=== PATIENT | female | born 1940 | race Caucasian/White ===

== ENCOUNTER 2024-07-19 14:17 | Outpatient (AMB) | payer MEDICARE, OTHER, SELFPAY ==
--- NOTE | 2024-07-19 14:19 | MHC.OFFVIS ---
Vital Signs 07/19/24 14:20 Height 5 ft 6 in Weight 137 lb 9.095 oz BMI 22.2 BP 130/62 Blood Pressure Location Lt brachial Position Sitting Pulse 69 Pulse Source Pulse Oximeter Intake Visit Reasons: hyperparathyroidism Intake Note: Patient present today for Hyperthyroidism. Forensic Manager Required: No Accompanied by: Grand Child Allergies Penicillins Allergy (Mild, Verified 07/19/24 14:24) rash Medication List - Last Reconciled 07/19/24 by Yisel Corcoran MD amitriptyline 50 mg PO BEDTIME fluvastatin 20 mg PO DAILY hydrochlorothiazide 25 mg PO DAILY temazepam 15 mg PO BEDTIME PRN HPI Comments Details: 83-year-old female here today for subclinical hyperthyroidism. Here today with mallory. Labs done in May 2024 showed TSH was mildly low at 0.212, with normal free T4 of 1.4. Patient currently denies heat or cold intolerance, diarrhea or constipation, hair loss, palpitation, weight changes, mood changes, low energy, changes in appearance of eyes or vision changes, increased diaphoresis or dry skin. ? Does report some increased anxiety. Some intermittent chronic tremors. Patient denies any difficulty swallowing, pain on swallowing or voice changes or difficulty breathing. Patient denies any history of childhood neck radiation. Denies having ever used lithium, amiodarone or biotin supplements. Patient denies any family history of thyroid cancer. Granddaughter has hypothyroidism. no CT scan recently no preceding viral illness no CAD no fractures but no bone recent BMD , patient denies osteoporosis Physical exam General: sitting comfortably in no acute distress HEENT: normocephalic/atraumatic, moist oral mucosa Neck: supple, palpable 1 cm right-sided thyroid nodule, palpable 1 cm left-sided level 3 lymph node Cardiac: normal heart sounds Pulm: normal breath sounds B/L, no added breath sounds Abd: not distended, no tenderness Extremities: no edema, no signs of myxedema, mild tremors Neuro: AAO x3, Speech: normal, no facial droop, moving all 4 extremities [facility] Medical History (Updated 07/19/24 @ 14:47 by Yisel Corcoran MD) Thyroid nodule Subclinical hyperthyroidism Surgical History (Updated 07/19/24 @ 14:26 by YOLANDA Karimi) History of bladder surgery Social History Alcohol intake: current Alcohol intake frequency: does not drink Patient Tobacco Use Status: Former Tobacco user Assessment & Plan Assessment & Plan (1) Subclinical hyperthyroidism: Code(s): E05.90 - Thyrotoxicosis, unspecified without thyrotoxic crisis or storm Category: Medical Plan: 83-year-old female here today for initial evaluation of subclinical hyperthyroidism. Labs done in May 2024 showed TSH was mildly low at 0.212, with normal free T4 of 1.4. She has never had prior history of thyroid dysfunction or thyroid hormone medication. She is not symptomatic. No history of heart disease, no known history of osteoporosis or any history of fragility fracture. However she is greater than 65 years, so we could possibly consider treatment. We will repeat her labs and also check her antibody levels to workup the etiology. She denies any preceding illness, no sore throat to suggest thyroiditis. No recent contrast exposure. No biotin use. Plan: -check TSH, free T4, total T3, TSI, TSH receptor and TPO antibodies (2) Thyroid nodule: Code(s): E04.1 - Nontoxic single thyroid nodule Category: Medical Plan: Also noted to have a palpable 1 cm right-sided thyroid nodule on my exam. We will get an ultrasound of the thyroid. Plan: -ordered ultrasound of the thyroid -follow up in 5 weeks to discuss results Plan I spent 45 minutes in reviewing the record, seeing the patient and documenting in the medical record. Orders: Orders Thyroid Stimulating Immunoglob Today E05.90 - Thyrotoxicosis, unspecified without thyrotoxic crisis or storm Thyrotropin Receptor Antibody Today E05.90 - Thyrotoxicosis, unspecified without thyrotoxic crisis or storm Thyroid Peroxidase Antibodies Today E05.90 - Thyrotoxicosis, unspecified without thyrotoxic crisis or storm Thyroid Stimulating Hormone Today E05.90 - Thyrotoxicosis, unspecified without thyrotoxic crisis or storm Free T4 (Free Thyroxine) Today E05.90 - Thyrotoxicosis, unspecified without thyrotoxic crisis or storm Triiodothyronine T3 Total Today E05.90 - Thyrotoxicosis, unspecified without thyrotoxic crisis or storm US thyroid Today E04.1 - Nontoxic single thyroid nodule, E05.90 - Thyrotoxicosis, unspecified without thyrotoxic crisis or storm Coding Level of Care Code New Pt Level 4 (90097) Diagnoses Subclinical hyperthyroidism E05.90 Thyroid nodule E04.1 Time Spent (min) 45
[2024-07-19 14:20] VITALS: BP 130/62; PULSE 69; BMI 22.2
--- OUTSIDE RECORDS SUMMARY | 2024-07-19 16:26 | XMS_ITS ---
Author Organization [facility], [facility] Address [address], [place] [id number] Care Team Providers Care Bottom Worker Name Role Phone DAXA MONCADA Primary Care Provider Che Noel [phone] REASON FOR VISIT annual/labs Encounters Encounter Location Date Provider Diagnosis [facility], [address] [id number] 06/13/2024 Che Noel PLAN OF TREATMENT No Information Progress Notes * MARGOTH FLYNNOB:1940 (83 yo F)Acc No.[id number]:06/13/2024 Progress Note Patient:??MAXWELL FLYNN Provider:??Che Noel DNP :1940?Age:83 Y?Sex:Fe male Date:06/13/2024 Phone: Address:[address], [id number] Pcp:DAXA MONCADA Subjective: * Chief Complaints: * ?1. Annual/labs. * Medical History:?? Objective: Assessment: Plan: * Treatment: Care Plan: * Problems:?? * Billing Information: * Visit Code:?? * Procedure Codes:?? * Sign off status: Pending * Provider:??Che Noel DNP Date:??
--- OUTSIDE RECORDS SUMMARY | 2024-07-19 16:26 | XMS_ITS | Patient Health Record ---
Author Organization [facility] Address [address] [place] [id number] Care Team Providers Care Railroad Detective Name Role Phone DAXA MONCADA Primary Care Provider [phone] Kenzie Noelie Unavailable [phone] ALLERGIES Allergen (clinical drug ingredient) Drug/Non Drug Allergy documented on EMR Reaction Allergy Type Onset Date Status amoxicillin Amoxicillin Unknown Drug Allergy Act john Penicillin rash , Severity Observation:Mode rate to severe , Drug Allergy Active REASON FOR REFERRAL No Information MEDICATIONS Medication SIG (Take, Route, Frequency, Duration) Notes Start Date End Date Status Albuterol Sulfate HFA 108 (90 Base) MCG/ACT INHALE 1 PUFF INTO THE LUNGS EVERY 4 HOURS NEEDED FOR 30 DAYS Active hydroCHLOROthiazide 25 MG 1 tablet in th e morning Oral Once a day for 90 days Active Aspirin 81 MG Oral aspirin 81 mg capsule *Pick strength-form from [employer] for eRX* 12/03/2021 Not-Taking Multivitamin Adult A ctive Trelegy Ellipta 100-62.5-25 MCG/ACT INHALE 1 PUFF INTO THE LUNGS EVERY DAY Active Temazepam 15 MG TAKE 1 CAPSULE BY MOUTH EVERYDAY AT BEDTIME 02/14/2024 Active Amitriptyline HCl 50 MG 1 tablet at bedtime Orally Once a day for 90 days Active Fluvastatin Sodium 20 MG 1 capsule in th e evening Orally Once a day for 90 days Active SOCIAL HISTORY Tobacco Use: Social History Observation Description Date Details (start date - stop date) Former Smoker NA - NA Sex Assigned At : Social History Observation Description Sex Assigned At Unknown Household Question Answer Notes Marital status: single Tobacco Use/Smoking Question Answer Notes Tobacco use: former smoker Sexual History Question Answer Notes Had sex in the past 12 months (vaginal, oral, or anal)? No Section Notes: Lives in [place], [place] with daughter Lives in [place], [place] with daughter Lives in [place] with daughter [place] in [place] with daughter PROBLEMS Problem Type ICD Code Onset Dates Problem Status W/U Status Risk SNOMED Code Notes Problem Mixed hyperlipidemia (E78.2) Active confirmed 942970279 Problem Primary insomnia (F51.01) Active confirmed 2775862 Problem Essential (primary) hypertension (I10) Active confirmed 72913497 Problem Slow transit constipation (K59.01) Active confirmed 64464216 Problem Chronic obstructive pulmonary disease, unspecified COPD type (J44.9) Active confirmed 76550196 Problem Hyperthyroidism (E05.90) Active confirmed 37831498 Problem Elevated hemoglobin (D58.2) Active confirmed 234800717 Problem 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 Started at 81 and increased to 84. Height-cm 170.18 cm 03/28/2024 Fingers are anne y cold. Started at 81 and increased to 84. Oximetry 87 % 03/28/2024 Fingers are anne y cold. Started at 81 and increased to 84. Blood pressure diastolic 64 mm Hg 03/28/2024 Fin gers are very cold. Started at 81 and increased to 84. Weight-kg 60.96 kg 03/28/2024 Fingers are anne y cold. Started at 81 and increased to 84. Height 67 in 03/28/2024 Fingers are anne y cold. Started at 81 and increased to 84. Blood pressure systolic 116 mm Hg 03/28/2024 Fing ers are very cold. Started at 81 and increased to 84. Weight 134.4 lbs 03/28/2024 Fingers are anne y cold. Started at 81 and increased to 84. BMI 21.05 kg/m2 03/28/2024 Fingers are anne y cold. Started at 81 and increased to 84. Encounters Encounter Location Date Provider Diagnosis [facility], [address] [place] [id number] [address] [place] [id number] 06/13/2024 Che [facility], [address] [place] [id number] 03/28/2024 Che Noel Essential (primary) hypertension I10 ; Mixed hyperlipidemia E78.2 ; Hyperthyroidism E05.90 ; Elevated hemoglobin D58.2 ; Chronic obstructive pulmonary disease, unspecified COPD type J44.9 and Primary insomnia F51.[address] [id number] 07/28/2023 Che Noel [address] [id number] 12/07/2023 Che Noel [address] [id number] 02/14/2024 Che Noel [address] [id number] 04/06/2024 Che Noel ASSESSMENTS Encounter Date Diagnosis Assessment Notes Treatment Notes Treatment Clinical Notes Section Notes 03/28/2024 Mixed hyperlipidemia (ICD-10 - E78.2) Continue current statin Low fat, low cholesterol diet Exercise Check lipids, LFTs 03/28/2024 Essential (primary) hypertension (ICD-10 - I10) Continue medication as directed Low-salt diet Weight management Regular exercise Yearly microalbumin 03/28/2024 Hyperthyroidism (ICD-10 - E05.90) Will repeat labs 03/28/2024 Elevated hemoglobin (ICD-10 - D58.2) Will repeat labs 03/28/2024 Chronic obstructive pulmonary disease, unspecified COPD type (ICD-10 - J44.9) Continue with inhalers Discussed proper usage/technique Treat any infections proactively Needed oxygen therapy to dany o2sat 88-90%- will send script to [facility]. 03/28/2024 Primary insomnia (ICD-10 - F51.01) Stable/managed on current med regimen Discussed importance of sleep hygiene To engage in both pharmacologic and nonpharmacologic means 03/28/2024 Other Labs printed- w ill most likely go to [facility] to get her labs done PLAN OF TREATMENT Future Test Test Name Order Date LIPID PANEL, STANDARD (4770) 03/28/2024 THYROID PANEL WITH TSH (8206) 03/28/2024 IRON, TIBC AND FERRITIN PANEL (9736) 10/2024 METHYLMALONIC ACID AND HOMOCYSTEINE (305 17) 03/28/2024 COMPREHENSIVE METABOLIC PANEL (04682) CBC (INCLUDES DIFF/PLT) (6399) RETICULOCYTE COUNT (793) 03/28/2024 HS CRP (85640) 03/28/2024 APOLIPOPROTEIN A1 (5223) 03/28/2024 APOLIPOPROTEIN B (5224) 03/28/2024 INSULIN (561) 03/28/2024 VITAMIN D,25-OH,TOTAL,IA (45858) 025 Insurance Providers Payer Name Payer Address Payer Phone Subscriber Number Group Number Insured Name Patient Relationship to Insured Coverage Start Date Coverage End Date Medicare [address] [place] [address] [phone] [id number] MAXWELL FLYNN Self - patient is the insured [facility] [address] [place], [place] [id number] MAXWELL FLYNN Self - patient is the insured MEDICAL (GENERAL) HISTORY Medical History History ICD Code transient ischemic attack (TIA) dentures hearing aids cataracts hyperthyroidism hypertension urinary tract infection- straight cath's herself chronic obstructive pulmonary disease emphysema Surgical History Surgery Date(Month/Year) Bladder tied off (as a cath) 2019
--- OUTSIDE RECORDS SUMMARY | 2024-07-19 16:26 | XMS_ITS ---
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 Name Role Phone DAXA MONCADA Primary Care Provider Che Noel Unavailable [phone] ALLERGIES Allergen (clinical drug ingredient) Drug/Non Drug Allergy documented on EMR Reaction Allergy Type Onset Date Status amoxicillin Amoxicillin Unknown Drug Allergy Act john Penicillin rash , Severity Observation:Mode rate to severe , Drug Allergy Active REASON FOR VISIT f/u wellness MEDICATIONS Medication SIG (Take, Route, Frequency, Duration) Notes Start Date End Date Status Albuterol Sulfate HFA 108 (90 Base) MCG/ACT INHALE 1 PUFF INTO THE LUNGS EVERY 4 HOURS NEEDED FOR 30 DAYS Active hydroCHLOROthiazide 25 MG 1 tablet in th e morning Oral Once a day for 90 days Active Aspirin 81 MG Oral aspirin 81 mg capsule *Pick strength-form from [email or web address] for eRX* 12/03/2021 Not-Taking Multivitamin Adult A ctive Fluvastatin Sodium 20 MG 1 capsule in th e evening Orally Once a day for 90 days Active Trelegy Ellipta 100-62.5-25 MCG/ACT INHALE 1 PUFF [...] or anal)? No Section Notes: Lives in [place], [place] with daughter VITAL SIGNS Blood pressure systolic 116 mm Hg 03/28/19 25 Blood pressure diastolic 64 mm Hg 025 Heart Rate 91 /min 03/28/2024 Oximetry 87 % 03/28/2024 Weight 134.4 lbs 03/28/2024 Weight-kg 60.96 kg 03/28/2024 Height 67 in 03/28/2024 Height-cm 170.18 cm 03/28/2024 BMI 21.05 kg/m2 03/28/2024 Fingers are very cold. Start ed at 81 and increased to 84. Encounters Encounter Location Date Provider Diagnosis [address] [phone] 03/28/2024 Che Noel Essential (primary) hypertension I10 ; Mixed hyperlipidemia E78.2 ; Hyperthyroidism E05.90 ; Elevated hemoglobin D58.2 ; Chronic obstructive pulmonary disease, unspecified COPD type J44.9 and Primary insomnia F51.01 ASSESSMENTS Encounter Date Diagnosis Assessment Notes Treatment Notes Treatment Clinical Notes Section Notes 03/28/2024 Essential (primary) hypertension (ICD-10 - I10) Continue medication as directed Low-salt diet Weight management Regular exercise Yearly microalbumin 03/28/2024 Mixed hyperlipidemia (ICD-10 - E78.2) Continue current statin Low fat, low cholesterol diet Exercise Check lipids, LFTs 03/28/2024 Hyperthyroidism (ICD-10 - E05.90) Will repeat [...] get her labs done PLAN OF TREATMENT Medication Medication Name Sig Start Date Stop Date Notes Albuterol Sulfate HFA 108 (9 0 Base) MCG/ACT INHALE 1 PUFF INTO THE LUNGS EVERY 4 HOURS NEEDED FOR 30 DAYS hydroCHLOROthiazide 25 MG 1 tablet in th e morning Oral Once a day for 90 days Multivitamin Adult Fluvastatin Sodium 20 MG 1 capsule in th e evening Orally Once a day for 90 days Trelegy Ellipta 100-62.5-25 MCG/ACT INHA LE 1 PUFF INTO THE LUNGS EVERY DAY Temazepam 15 MG TAKE 1 CAPSULE BY [facility] EVERYDAY AT BEDTIME 02/14/2024 Amitriptyline HCl 50 MG 1 tablet at bedt brennan Orally Once a day for 90 days Treatment Notes Assessment Notes Essential (primary) hypertension Continue medication as directed Low-salt diet Weight management Regular exercise Yearly microalbumin Mixed hyperlipidemia Continue current statin Low fat, low cholesterol diet Exercise Check lipids, LFTs Hyperthyroidism Will repeat labs Elevated hemoglobin Will repeat labs Chronic obstructive pulmonar y disease, unspecified COPD type Continue with inhalers Discussed proper usage/technique Treat any infections proactively Needed oxygen therapy to [facility] o2sat 88-90%- will send script to [facility]. Primary insomnia Stable/managed on current med regimen Discussed importance of sleep hygiene To engage in both pharmacologic and nonpharmacologic means Other Labs printed- will miriam he likely go to [facility] to get her labs done Future Test Test Name Order Date LIPID PANEL, STANDARD (7600) 03/28/2024 THYROID PANEL WITH TSH (7444) 03/28/2024 IRON, TIBC AND FERRITIN PANEL (5616) 10/2024 METHYLMALONIC ACID AND HOMOCYSTEINE (305 17) 03/28/2024 COMPREHENSIVE METABOLIC PANEL (82429) CBC (INCLUDES DIFF/PLT) (6399) RETICULOCYTE COUNT (793) 03/28/2024 HS CRP (84185) 03/28/2024 APOLIPOPROTEIN A1 (5223) 03/28/2024 APOLIPOPROTEIN B (5224) 03/28/2024 INSULIN (561) 03/28/2024 VITAMIN D,25-OH,TOTAL,IA (10866) 025 Next Appt Details Follow Up: May- already crist[facility] oked for CPE, Reason: please write on card and print labs Progress Notes * MARGOTH FLYNNOB:1940 (83 yo F)Acc No.[id number]:03/28/2024 Progress Notes Patient:??JACI FLYNN Provider:??Che Noel DNP :1940?Age:83 Y?Sex:Fe male Date:03/28/2024 Phone: Address:[address], [place], [id number] Pcp:DAXA MONCADA Subjective: * Chief Complaints: * ?F/u wellness * HPI: ?Patient Care Team:?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 Providers/Specialists: Not at this moment. ?Visit info:? Jaci presents in the office today for a wellness check in. Since her last visit she has moved into her own place in [place]. She states that she doesn't mind living alone and enjoys her own space. ?She explains an episode of what sounds like Vertigo a few months ago. She states that she does get dizzy from time to time when she moves positions quickly. ?She denies episodes of palpitations, shortness of breath, unsteady gait, confusion, disorientation ?She states that she does need a new script for home oxygen as she does use it periodically ?Also will need a new handicap placard in September- she is still using her one from [place] ?She states that she stopped taking her ASA because she was bruising, encouraged to take every other day and see if her bruising improves. ?Enjoyed the holidays with family ?She is due for a CPE and repeat labs- concern of driving in bad weather, either too cold or too hot- encouraged the use of TELE visit in the event she cannot go out, but needs to be seen or talk about concerns she has. * ROS:?Reviewed. * Medical History:?? 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 * OB History:?? Histo ry:??Total pregnancies:??4,??Full-term pregnancies:??3,??AB Induced:??1.?? * Surgical History:??Bladder t ied off (as a cath) 2020 * Hospitalization/Major Diagno stic Procedure:?? * Family History:??Father: dec eased 72 yrs, colon cancer.??Mother: 72 yrs, lung cancer.??Brother: 50 yrs, AIDS.??Sister: , skin cancer, congenital heart disease, heart disease.??Brother #2: 56 yrs, lung cancer.??Brother #3: 69 yrs, dementia, lung cancer.?? * Social History:?Tobacco Use:??Tobacco Use/Smoking??Tobacco use:??former smoker.?Sexual History:??Sexual History??Had sex in the past 12 months (vaginal, oral, or anal)???No.?Drugs/Alcohol:??Do you drink alcohol?: No. ?Household:??Household??Marital status:??single.?Miscellaneous:??Occupation: retired. ?Lives in [place], [place] with daughter. * Medications:??TakingMultivit alex Adult Albuterol Sulfate HFA 108 (90 Base) MCG/ACT Aerosol Solution INHALE 1 PUFF INTO THE LUNGS EVERY 4 HOURS NEEDED FOR 30 DAYS Amitriptyline HCl 50 MG Tablet TAKE 1 TABLET BY MOUTH EVERY DAY AT BEDTIME FOR 90 DAYS Fluvastatin Sodium 20 MG Capsule TAKE 1 CAPSULE BY MOUTH IN THE EVENING hydroCHLOROthiazide 25 MG Tablet TAKE 1 TABLET BY MOUTH EVERY MORNING Trelegy Ellipta 100-62.5-25 MCG/ACT Aerosol Powder Breath Activated INHALE 1 PUFF INTO THE LUNGS EVERY DAY Temazepam 15 MG Capsule TAKE 1 CAPSULE BY MOUTH EVERYDAY AT BEDTIME Taking Multivitamin Adult Taking Albuterol Sulfate HFA 108 (90 Base) MCG/ACT Aerosol Solution INHALE 1 PUFF INTO THE LUNGS EVERY 4 HOURS NEEDED FOR 30 DAYS Taking Amitriptyline HCl 50 MG Tablet TAKE 1 TABLET BY MOUTH EVERY DAY AT BEDTIME FOR 90 DAYS Taking Fluvastatin Sodium 20 MG Capsule TAKE 1 CAPSULE BY MOUTH IN THE EVENING Taking hydroCHLOROthiazide 25 MG Tablet TAKE 1 TABLET BY MOUTH EVERY MORNING Taking Trelegy Ellipta 100-62.5-25 MCG/ACT Aerosol Powder Breath Activated INHALE 1 PUFF INTO THE LUNGS EVERY DAY Taking Temazepam 15 MG Capsule TAKE 1 CAPSULE BY MOUTH EVERYDAY AT BEDTIME Not-TakingAspirin 81 MG Capsule Oral , Notes to Pharmacist: aspirin 81 mg capsule *Pick strength-form from [employer] for eRX*Medication List reviewed and reconciled with the patientNot-Taking Aspirin 81 MG Capsule Oral , Notes to Pharmacist: aspirin 81 mg capsule *Pick strength-form from [employer] for eRX*Medication List reviewed and reconciled with the patient * Allergies:??Penicillin: rash , Severity Observation:Moderate to severe , - AllergyAmoxicillin: Side Effects Objective: * Vitals:??BP: 116/64 mm Hg, H R: 91 /min, Oxygen sat %:87%, Wt: 134.4 lbs, Wt-k.96 kg, Ht: 67 in, Ht-cm: 170.18 cm, BMI: 21.05 Index, Body Surface Area: 1.7 Fingers are very cold. Started at 81 and increased to 84. * Examination: ?General Examination: ?General appearance: no acute distress, speaking full sentences, thoughts clear and appropriate. ? Head: normocephalic, atraumatic. ? Eyes: sclera anicteric. ? Oral cavity: with good dentition, tongue is midline. ? Lungs: non-labored breathing, no audible shortness of breath or wheezing. ? Neurologic: alert and oriented, cooperative with exam. ? Psych: with good judgement and insight, speech is clear and coherent, normal affect / mood. Assessment: * Assessment: 1.??Essential (primary) hype rtension - I10 (Primary)??2.??Mixed hyperlipidemia - E78.2??3.??Hyperthyroidism - E05.90??4.??Elevated hemoglobin - D58.2??5.??Chronic obstructive pulmonary disease, unspecified COPD type - J44.9??6.??Primary insomnia - F51.01?? Plan: * Treatment: 2.??Mixed hyperlipidemia?? Refill Fluvastatin Sodium Capsule, 20 MG, 1 capsule in the evening, Orally, Once a day, 90 days, 90 Capsule, Refills 3.?LAB: APOLIPOPROTEIN A1 (5223) (Ordered for 03/28/2024) ?LAB: APOLIPOPROTEIN B (5224) (Ordered for 03/28/2024) ?LAB: CBC (INCLUDES DIFF/PLT) (6399) (Ordered for 03/28/2024) ?LAB: COMPREHENSIVE METABOLIC PANEL (14579) (Ordered for 03/28/2024) ?LAB: HS CRP (36394) (Ordered for 03/28/2024) ?LAB: INSULIN (561) (Ordered for 03/28/2024) ?LAB: IRON, TIBC AND FERRITIN PANEL (5616) (Ordered for 03/28/2024) ?LAB: LIPID PANEL, STANDARD (2100) (Ordered for 03/28/2024) ?LAB: METHYLMALONIC ACID AND HOMOCYSTEINE (94854) (Ordered for 03/28/2024) ?LAB: RETICULOCYTE COUNT (793) (Ordered for 03/28/2024) ?LAB: THYROID PANEL WITH TSH (3744) (Ordered for 03/28/2024) ?LAB: VITAMIN D,25-OH,TOTAL,IA (76642) (Ordered for 03/28/2024) Notes: Continue current statin Low fat, low cholesterol diet Exercise Check lipids, LFTs? 3.??Hyperthyroidism?LAB: APOLIPOPROTEIN A1 (5223) (Ordered for 03/28/2024) ?LAB: APOLIPOPROTEIN B (5224) (Ordered for 03/28/2024) ?LAB: CBC (INCLUDES DIFF/PLT) (6399) (Ordered for 03/28/2024) ?LAB: COMPREHENSIVE METABOLIC PANEL (64960) (Ordered for 03/28/2024) ?LAB: HS CRP (91321) (Ordered for 03/28/2024) ?LAB: INSULIN (561) (Ordered for 03/28/2024) ?LAB: IRON, TIBC AND FERRITIN PANEL (5616) (Ordered for 03/28/2024) ?LAB: LIPID PANEL, STANDARD (9290) (Ordered for 03/28/2024) ?LAB: METHYLMALONIC ACID AND HOMOCYSTEINE (22352) (Ordered for 03/28/2024) ?LAB: RETICULOCYTE COUNT (793) (Ordered for 03/28/2024) ?LAB: THYROID PANEL WITH TSH (2844) (Ordered for 03/28/2024) ?LAB: VITAMIN D,25-OH,TOTAL,IA (85940) (Ordered for 03/28/2024) Notes: Will repeat labs? 4.??Elevated hemoglobin?LAB: APOLIPOPROTEIN A1 (5223) (Ordered for 03/28/2024) ?LAB: APOLIPOPROTEIN B (5224) (Ordered for 03/28/2024) ?LAB: CBC (INCLUDES DIFF/PLT) (6399) (Ordered for 03/28/2024) ?LAB: COMPREHENSIVE METABOLIC PANEL (67664) (Ordered for 03/28/2024) ?LAB: HS CRP (78340) (Ordered for 03/28/2024) ?LAB: INSULIN (561) (Ordered for 03/28/2024) ?LAB: IRON, TIBC AND FERRITIN PANEL (5616) (Ordered for 03/28/2024) ?LAB: LIPID PANEL, STANDARD (2860) (Ordered for 03/28/2024) ?LAB: METHYLMALONIC ACID AND HOMOCYSTEINE (12981) (Ordered for 03/28/2024) ?LAB: RETICULOCYTE COUNT (793) (Ordered for 03/28/2024) ?LAB: THYROID PANEL WITH TSH (6444) (Ordered for 03/28/2024) ?LAB: VITAMIN D,25-OH,TOTAL,IA (02594) (Ordered for 03/28/2024) Notes: Will repeat labs? 5.??Chronic obstructive pulm onary disease, unspecified COPD type?? Continue Albuterol Sulfate HFA Aerosol Solution, 108 (90 Base) MCG/ACT, INHALE 1 PUFF INTO THE LUNGS EVERY 4 HOURS NEEDED FOR 30 DAYS;??Continue Trelegy Ellipta Aerosol Powder Breath Activated, 100-62.5-25 MCG/ACT, INHALE 1 PUFF INTO THE LUNGS EVERY DAY.?LAB: APOLIPOPROTEIN A1 (5223) (Ordered for 03/28/2024) ?LAB: APOLIPOPROTEIN B (5224) (Ordered for 03/28/2024) ?LAB: CBC (INCLUDES DIFF/PLT) (6399) (Ordered for 03/28/2024) ?LAB: COMPREHENSIVE METABOLIC PANEL (57388) (Ordered for 03/28/2024) ?LAB: HS CRP (31664) (Ordered for 03/28/2024) ?LAB: INSULIN (561) (Ordered for 03/28/2024) ?LAB: IRON, TIBC AND FERRITIN PANEL (5616) (Ordered for 03/28/2024) ?LAB: LIPID PANEL, STANDARD (7600) (Ordered for 03/28/2024) ?LAB: METHYLMALONIC ACID AND HOMOCYSTEINE (76123) (Ordered for 03/28/2024) ?LAB: RETICULOCYTE COUNT (793) (Ordered for 03/28/2024) ?LAB: THYROID PANEL WITH TSH (3844) (Ordered for 03/28/2024) ?LAB: VITAMIN D,25-OH,TOTAL,IA (63655) (Ordered for 03/28/2024) Notes: Continue with inhalers Discussed proper usage/technique Treat any infections proactively Needed oxygen therapy to [facility] o2sat 88-90%- will send script to [facility].? 6.??Primary insomnia?? Continue Temazepam Capsule, 15 MG, TAKE 1 CAPSULE BY MOUTH EVERYDAY AT BEDTIME.? Notes: Stable/managed on current med regimen Discussed importance of sleep hygiene To engage in both pharmacologic and nonpharmacologic means? 7.??Others?? Continue Multivitamin Adult.? Notes: Labs printed[facility] ? * Procedure Codes:?? * Preventive Medicine:?Last CPE: 02/16/22 at [facility] Colonoscopy: 20+ yrs ago Endoscopy: nvr Covid Vac: Yes Flu Vac: yes PV: yes Shingles Vac: no 02/02/2022: RBC 5.43; hgb 17.1; hct 49.6; glucose 120; insulin 9.3; A1c 5.6; GFR 79; TSH 0.13; Tcol 124; HDL 50; LDL 57; trigs 91; VItamin D 52 08/2022: RBC 5.36; hgb 16.8; hct 49.5; glucose 120; insulin 14.8; GFR 88; TSH 0.71; Tcol 134; HDL 49; LDL 66; trigs 105; Vitamin D 52. * Follow Up:??May- b ooked for CPE (Reason: please write on card and print labs) * Billing Information: * Visit Code:?? 05436 Office Visit, Est Pt., Level 5. * Procedure Codes:?? 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 Since her last visit she has moved into her own place in [place]. She states that she doesn't mind living alone and enjoys her own space. She explains an episode of what sounds like Vertigo a few months ago. She states that she does get dizzy from time to time when she moves positions quickly. She denies episodes of palpitations, shortness of breath, unsteady gait, confusion, disorientation She states that she does need a new script for home oxygen as she does use it periodically Also will need a new handicap placard in September- she is still using her one from [place] She states that she stopped taking her ASA because she was bruising, encouraged to take every other day and see if her bruising improves. Enjoyed the holidays with family She is due for a CPE and repeat labs- concern of driving in bad weather, either too cold or too hot- encouraged the use of TELE visit in the event she cannot go out, but needs to be seen or talk about concerns she has Examination Category Sub-Category Detail Notes Category Not es General Examination General appearance: no acute distress, speaking full sentences, thoughts clear and appropriate. Head: normocephalic, atraumatic. Eyes: sclera anicteric. Oral cavity: with good dentition, tongue is midline. Lungs: non-labored breathing, no audible shortness of breath or wheezing. Neurologic: alert and oriented, cooperative with exam. Psych: with good judgement and insight, speech is clear and coherent, normal affect / mood.
--- OUTSIDE RECORDS SUMMARY | 2024-07-19 16:26 | XMS_ITS | Continuity of Care Document ---
Author Organization [facility] Address [address] [facility] [address] [place] [address] Phone Care Team Providers Care Rater Associate Name Role Phone Nabor Wallace MD Unavailable Unavailable Allergies, Adverse Reactions, Alerts Substance Reaction Status Criticality Penicillins Rash Active No Information Medications Medication Instructions Dosage Effective Dates (start - stop) Status Comments TobraDex 0.3 %-0.1 % eye drops,suspension instill 1 Drop by Ophthalmic route morning and evening 4 days then 1x daily for 3 days both eyes - Active lovastatin 20 mg tablet take 1 tablet by oral route every day with the evening meal 20 MG - Active AMITRIPTYLINE HCL (unknown strength) take 1 tablet by oral route every day Not Available - Active TRELEGY ELLIPTA (unknown strength) inhale 1 puff by inhalation route every day at the same time each day Not Available - Active HYDROCHLOROTHIAZIDE (unknown strength) take 1 capsule by oral route every day Not Available - Active Procedures Procedure Date Ophth Serv: Med Exam; Comp New Ophth Serv: Med Exam; Comp Est 16 Postop F/u Visit Incld Global 5 FACILITY No Event On Discharge Patient W/OPreop Order IV AB Prop Discission 2nd Cataract; Laser 15 Offic/outpt E&m Estab Low-mod 5 FACILITY No Event On Discharge Patient W/OPreop Order IV AB Prop Discission 2nd Cataract; Laser 15 Offic/outpt E&m New Mod-hi 45 5 REFRACTION Advance Directives Directive Yes / No Effective Date File Name No Information Encounters Encounter Description Practice Location Reason(s) For Visit Diagnoses Date Provider Providers Copied on Encounter [facility], [address], [place], [place], [address] [place] [address] , tel:[phone] [facility] No Information 0 Rodrigo Tomlin. [address], [address] [place] [address], . tel:[phone] [facility], [address] [place] [address], [address] [place] [address] , tel:[phone] [facility] red eyes (chief complaint) Blepharitis of upper and lower eyelids of both eyes, unspecified typeDry eye syndrome of bilateral lacrimal glandsOther vitreous opacities, right eye 0 Carl Ortiz. [address], [id number], . tel:[phone] Referring Provider: Angel Mckeon, [address] [place] [address], [address] . tel:[phone] [facility], [address] [place] [address], [id number] , [phone] [facility] Dry eyes (chief complaint) black spot (chief complaint) Dry eye syndrome of bilateral lacrimal glandsBlepharitis of eyelidOther vitreous opacities, bilateral Oct-0 6 Carl Ortiz. [address], [id number], . tel:[phone] Referring Provider: Angel Mckeon, [address], [address] . tel:[phone] [facility], [address] [place] [address], [id number] , tel:[phone] [facility] Post Op (chief complaint) PseudophakiaVitreous floatersDry eyes 5 Carl Ortiz. [address], [address] [place] [address], . tel:[phone] Referring Provider: Angel Mckeon, [address] [place] [address], [address] . tel:[phone] [facility] [place], [address] [place] [address], [id number] , tel:[phone] [facility] No Information 5 [facility]. [address] [place] [address], [id number], . tel:[phone] Referring Provider: Angel Mckeon, [address] [place] [address], [address] . tel:[phone] [facility], [address] [place] [address], [id number] , tel:[phone] [facility] No Information 5 Carl Ortiz. [address] [place] [address], [id number], . tel:[phone] Referring Provider: Angel Mckeon, [address] [place] [address], [id number] . tel:[phone] Offic/outpt E&m Estab Low-mod [facility], [address] [place] [address], [id number] , tel:[phone] [facility] Post Op (chief complaint) Floaters (chief complaint) Blurry vision (chief complaint) Post Capsular HazeVitreous floaters 5 Carl Ortiz. [address], [address] [place] [address], . tel:[phone] Referring Provider: Angel Mckeon, [address], [address] . tel:[phone] [facility] [place], [address] [place] [address], [address] [place] [address] , tel:[phone] [facility] No Information 5 [facility]. [address] [place] [address], [address] [place] [address], . tel:[phone] Referring Provider: Angel Mckeon, [address] [place] [address], [id number] . tel:[phone] [facility], [address] [place] [address], [address] [place] [address] , tel:[phone] [facility] No Information 5 Carl Ortiz. [address] [place] [address], [address] [place] [address], . tel:[phone] Referring Provider: Angel Mckeon, [address] [place] [address], [address] . tel:[phone] Offic/outpt E&m New Mod-hi 45 [facility], [address] [place] [address], [address] [place] [address] , tel:[phone] [facility] decreased vision (chief complaint) Post Capsular HazeVitreous floatersDry eyes Apr-0 5 Carl Ortiz. [address], [address] [place] [address], . tel:[phone] Referring Provider: Angel Mckeon, [address] [place] [address], [address] . tel:[phone] Family History Family Member Type Diagnosis Age At Onset Brother Problem (finding) Mother Problem (finding) Father Problem (finding) Sister Problem (finding) Alive and well Payers Payer name Insurance type Covered green party ID Authortea ngo(s) Medicare MB [id number] [facility] [id number] Social History Type Description Quantity Date Captured Comments Alcohol Use Details Unknown Caffeine Use Details Unknown Tobacco Use Status No Information Smoking Status No Information Sex Female Chief Complaint And Reason For Visit No Information Reason For Referral Reason For Referral No Information Plan Of Treatment Date Type Action Status Patient Education Floaters and Flashes: C are Instructio~ completed Patient Education Dry Eyes: Care Instruct ions completed History Of Present Illness Encounter Date Complaint History Of Prese nt Illness red eyes Patient presents with red eyes. Patient states the whiter part of her eyes have been red for 6 months. Patient states she has tried clear eyes for a couple of days with no help. Patient states her eyes burn. Patient denies omaira gritty feeling. patient states when she wakes up in the morning her eyes have yellow goop . Patient denies any trauma to the eye. Patient states no noticeable changes in vision. Patient states vision is adequate for all daily tasks. Patient uses [employer]. black spot The patient pres ents with history of black spot in the right eye and left eye. Once in a great while I will see a black spot but it doesn't stay . Dry eyes The 75 year old female presents for evaluation of Dry eyes in the right eye and left eye. It started about 6 month(s) ago. It occurs all the time. The onset was sudden. The condition is mild. Has to squeeze eyes together to get them tearing to help clear the dry eye feeling. Does not bother VA. Post Op 16 day post op f or Yag cap laser, right eye. Patient states that vision has improved since the laser, says that it's nice to see again and wear sunglasses . Patient says vision is excellent. Blurry vision The patient pres ents for evaluation of Blurry vision in the right eye. Aware of rings around headlights x 1week ago. Floaters The patient pres ents for evaluation of Floaters in the left eye. Aware of floaters since YAG. Post Op The 73 year old female presents for evaluation of Post Op (YAG) in the left eye. Pt states VA much better since YAG Laser. decreased vision The 73 year old female presents for evaluation of decreased vision in the right eye but greater in the left eye. It started about 1-2 year(s) ago. Symptoms occurs all the time. It affects both near and far vision. The condition is severe. Left eye feels like there is a film over it, and right feels like there is something in it . Closes left eye to read. Does not noticed any glare because she does not drive at night, however she won't drive because of my blurry vision Functional Status Date Functional Assessmen t No Information Instructions Date Instruction Additional Infor hero Return in [address] Angel Henry established patient long exam. cpt today 33198 Related to Blepharitis of upper and lower eyelids of both eyes, unspecified type Impression/Plan Related to Dry e ye syndrome of bilateral lacrimal glands Impression/Plan Related to Bleph aritis of upper and lower eyelids of both eyes, unspecified type Impression/Plan Related to Other vitreous opacities, right eye Return in [address] Angel Henry established [place] [address] today. Related to Other vitreous opacities, bilateral Impression/Plan - S uggest use artificial tears once or twice a day for comfort. Related to Dry eye syndrome of bilateral lacrimal glands Impression/Plan - Use hot compresses for comfort. Sample of Cliradex eye pads given to patient to scrub lid margins. Related to Blepharitis of eyelid Impression/Plan - S ymptoms of retinal detachment (flashes, floaters, shade or curtain blocking vision) explained. Patient knows to call/come in if occur. Related to Other vitreous opacities, bilateral Follow up - Return in [address] Angel Henry established patient [place]. cpt 76597 today. Related to Other vitreous opacities, bilateral - Suggest use artifi cial tears once or twice a day for comfort. Related to Dry eyes - Return in 1 year w tiffanie Henry established patient long exam. CPT code today 06488 Related to Pseudophakia - Stable YAG post op result right eye. Call/come in if any sudden changes in vision. Related to Pseudophakia - Symptoms of retina l detachment (flashes, floaters, shade or curtain blocking vision) explained. Patient knows to call/come in if occur. Related to Vitreous floaters - Stable yag cap pos t op result left eye. Suggest Yag Laser Capsulotomy right eye. Dr. Henry explained risks and benefits in detail with patient. Pt wishes to schedule Yag Laser Cap right eye. Related to Post Capsular Haze - Patient aware vitr eous floaters may be more visible after laser. Related to Vitreous floaters - Return with Dr. Krunal Henry for next available direct admit Yag Laser Cap right eye. Post op with Dr. Henry in 5-20 days after Laser. Patient to see Patient Counselor today. Related to Post Capsular Haze - Return with Dr. Krunal Henry for next available direct admit Yag Laser Cap left eye. Post op with Dr. Henry in 10-21 days after Laser. Patient to see Patient Counselor today. CPT code today 41521 Related to Post Capsular Haze - Suggest Yag Laser Capsulotomy left eye. Dr. Henry explained risks and benefits in detail with patient. Pt wished to schedule Yag Laser Cap left eye Related to Post Capsular Haze - Symptoms of retina l detachment (flashes, floaters, shade or curtain blocking vision) explained. Patient knows to call/come in if occur. Related to Vitreous floaters - Suggest use artifi cial tears once or twice a day for comfort. Related to Dry eyes Assessments Type Assessment Date No Information Patient Care Teams Name Effective Dates (start - stop) Status Members No Information
--- OUTSIDE RECORDS SUMMARY | 2024-07-19 16:26 | XMS_ITS ---
Author Organization [facility], [facility] Address [address], [place] [id number] Care Team Providers Care Test Preparer Name Role Phone DAXA MONCADA Primary Care Provider Che Noel [phone] REASON FOR VISIT O2 Order Encounters Encounter Location Date Provider Diagnosis [facility], [facility] [address], [place] [id number] 04/06/2024 Che Noel PLAN OF TREATMENT No Information Progress Notes * MARGOTH FLYNNOB:1940 (83 yo F)Acc No.[id number]:04/06/2024 Patient:??MAXWELL FLYNN :1940?Age:83 Y?Sex:Fe male Phone: Address:[address] [place] [address] * true * Date:??
== END 2024-07-19 14:52 | disposition home or self-care (01) ==
PROVIDERS: PCP Nurse Practitioner; Visit Provider Student in an Organized Health Care Education/Training Program
DX: E05.90 Thyrotoxicosis, unspecified without thyrotoxic crisis or storm (principal); E04.1 Nontoxic single thyroid nodule
CPT/HCPCS: 99204

== ENCOUNTER 2024-07-19 14:17 | Outpatient (REF) | payer MEDICARE, OTHER, SELFPAY ==
[2024-07-19 16:48] LABS: Free T4 (Free Thyroxine) 1.26 ng/dL (0.71-1.85); Thyroid Stimulating Hormone 0.07 uIU/mL (0.32-4.0)
--- OUTSIDE RECORDS SUMMARY | 2024-07-19 17:03 | XMS_ITS | Continuity of Care Document ---
Author Organization [facility] Address [address] [facility] [address] [place] [address] Phone Care Team Providers Care Concession Attendant Name Role Phone Nabor Wallace MD Unavailable [...] Provider Providers Copied on Encounter [facility], [address], [place], [place], [address] [place] [address] , tel:[phone] [facility] No Information 0 Rodrigo Tomlin. [address], [address] [place] [address], . tel:[phone] [facility], [address] [place] [address], [address] [place] [address] , [phone] [facility] red eyes (chief complaint) Blepharitis of upper and lower eyelids of both eyes, unspecified typeDry eye syndrome of bilateral lacrimal glandsOther vitreous opacities, right eye 0 Carl Ortiz. [address], [id number], . tel:[phone] Referring Provider: Angel Mckeon, [address] [place] [address], [address] . tel:[phone] [facility], [address] [place] [address], [id number] , [phone] [facility] Dry eyes (chief complaint) black spot (chief complaint) Dry eye syndrome of bilateral lacrimal glandsBlepharitis of eyelidOther vitreous opacities, bilateral Oct-0 6 Carl Ortiz. [address], [id number], . tel:[phone] Referring Provider: Angel Mckeon, [address], [address] . tel:[phone] [facility], [address] [place] [address], [id number] , tel:[phone] [facility] Post Op (chief complaint) PseudophakiaVitreous floatersDry eyes 5 Carl Ortiz. [address], [address] [place] [address], . tel:[phone] Referring Provider: Angel Mckeon, [address] [place] [address], [address] . tel:[phone] [facility] [place], [address] [place] [address], [id number] , tel:[phone] [facility] No Information 5 [facility]. [address] [place] [address], [id number], . tel:[phone] Referring Provider: Angel Mckeon, [address] [place] [address], [address] . tel:[phone] [facility], [address] [place] [address], [id number] , tel:[phone] [facility] No Information 5 Carl Ortiz. [address] [place] [address], [id number], . tel:[phone] Referring Provider: Angel Mckeon, [address] [place] [address], [address] . tel:[phone] Offic/outpt E&m Estab Low-mod [facility], [address] [place] [address], [id number] , tel:[phone] [facility] Post Op (chief complaint) Floaters (chief complaint) Blurry vision (chief complaint) Post Capsular HazeVitreous floaters 5 Carl Ortiz. [address], [address] [place] [address], . tel:[phone] Referring Provider: Angel Mckeon, [address], [address] . tel:[phone] [facility] [place], [address] [place] [address], [address] [place] [address] , tel:[phone] [facility] No Information 5 [facility]. [address] [place] [address], [address] [place] [address], . tel:[phone] Referring Provider: Angel Mckeon, [address] [place] [address], [address] . tel:[phone] [facility], [address] [place] [address], [address] [place] [address] , tel:[phone] [facility] No Information 5 Carl Ortiz. [address] [place] [address], [address] [place] [address], . tel:[phone] Referring Provider: Angel Mckeon, [address] [place] [address], [address] . tel:[phone] Offic/outpt E&m New Mod-hi 45 [facility], [address] [place] [address], [address] [place] [address] , tel:[phone] [facility] decreased vision (chief complaint) Post Capsular HazeVitreous floatersDry eyes Apr-0 5 Carl Ortiz. [address], [address] [place] [address], . tel:[phone] Referring Provider: Angel Mckeon, [address] [place] [address], [id number] . tel:[phone] Family History Family Member Type Diagnosis Age At Onset Brother Problem (finding) Mother Problem (finding) Father Problem (finding) Sister Problem (finding) Alive and well Payers Payer name Insurance type Covered republican ID Authortea ngo(s) Medicare MB [id number] [facility] [id number] Social History Type Description Quantity Date Captured [...] Henry established patient long exam. cpt today 07120 Related to Blepharitis of upper and lower eyelids of both eyes, unspecified type Impression/Plan Related to Dry e ye syndrome of bilateral lacrimal glands Impression/Plan Related to Bleph aritis of upper and lower eyelids of both eyes, unspecified type Impression/Plan Related to Other vitreous opacities, right eye Return in [address] Angel Henry established [place]. c[place] [address] today. Related to Other vitreous opacities, bilateral [...] Angel Henry established patient long exam. cpt 49933 today. Related to Other vitreous opacities, bilateral - Suggest use artifi cial tears once or twice a day for comfort. Related to Dry eyes - Return in 1 year w tiffanie Henry established patient long exam. CPT code today 99766 Related to Pseudophakia - Stable YAG post [...] see Patient Counselor today. CPT code today 66461 Related to Post Capsular Haze - Suggest [...]
[2024-07-20 06:49] LABS: Triiodothyronine T3 Total 159 ng/dL (76-181)
[2024-07-20 09:13] LABS: Thyroid Peroxidase Antibodies <1 IU/mL (<9)
[2024-07-23 15:59] LABS: Thyrotropin Receptor Antibody <1.00 IU/L (<=2.00)
[2024-07-24 15:53] LABS: Thyroid Stimulating Immunoglob <89 % baseline (<140)
== END 2024-07-19 14:18 | disposition home or self-care (01) ==
LOC: HO.LAB 14:17
PROVIDERS: PCP Nurse Practitioner; Visit Provider Student in an Organized Health Care Education/Training Program
DX: E05.90 Thyrotoxicosis, unspecified without thyrotoxic crisis or storm (principal); E04.1 Nontoxic single thyroid nodule
CPT/HCPCS: 36415; 83520; 84439; 84443; 84445; 84480; 86376; 99202

== ENCOUNTER 2024-08-21 14:32 | Outpatient (REF) | payer MEDICARE, OTHER, SELFPAY ==
--- NOTE | ~2024-08-21 | US_ITS ---
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 COMPARISON: There are no prior studies available for comparison. FINDINGS: SIZE: The right thyroid lobe measures 4.9 x 2.6 x 2.8 cm. The left thyroid lobe measures 2.6 x 0.9 x 0.7 cm. The isthmus measures 2 mm. FLOW: Flow to the gland is normal. ECHOGENICITY: The echotexture of the gland is heterogeneous. NODULES: There is a dominant nodule in the midportion of the right thyroid lobe as described below: Nodule #: 1 Location: Midportion of the right thyroid lobe measuring 3.2 x 2.1 x 2.5 cm. Shape: Wider than tall (0 points) Margins: Smooth (0 points) Echotexture: Isoechoic (1 point) Composition: Mixed (1 point) Calcifications: Punctate calcifications (3 points) Total points: 6 TIRADS: TR4: Moderately suspicious. US/US thyroid IMPRESSION: Dominant 3.2 x 2.1 x 2.5 cm moderately suspicious nodule in the right thyroid lobe. According to ACR TI-RADS guidelines below, ultrasound-guided fine-needle aspiration is recommended. ACR TI-RADS Guidelines TR1 (0 points): Benign, No follow-up or biopsy required TR2 (2 points): Not Suspicious, No biopsy or follow up indicated TR3 (3 points): Mildly Suspicious, FNA if >= 2.5 cm, Follow if >= 1.5 cm TR4 (4-6 points): Moderately Suspicious, FNA if >= 1.5 cm, Follow if >= 1.0 cm TR5 (>=7 points): Highly Suspicious, FNA if >= 1.0 cm, Follow if >= 0.5 cm Electronically signed by: Nabor Saba MD 08/21/2024 03:17 PM EDT
--- OUTSIDE RECORDS SUMMARY | 2024-08-21 16:20 | XMS_ITS | Continuity of Care Document ---
Author Organization [facility] Address [address] [facility] [address] [place] [address] Phone Care Team Providers Care Vending Machine Technician Name Role Phone Nabor Wallace MD Unavailable [...] Provider Providers Copied on Encounter [facility], [address], [place], [place], [address] [place] [address] , tel:[phone] [facility] No Information 0 Rodrigo Tomlin. [address], [address] [place] [address], . tel:[phone] [facility], [address] [place] [address], [address] [place] [address] , tel:[phone] [facility] red eyes (chief complaint) Blepharitis of upper and lower eyelids of both eyes, unspecified typeDry eye syndrome of bilateral lacrimal glandsOther vitreous opacities, right eye 0 Carl Ortiz. [address], [id number], . tel:[phone] Referring Provider: Angel Mckeon, [address] [place] [address], [id number] . tel:[phone] [facility], [address] [place] [address], [id number] , [phone] [facility] Dry eyes (chief complaint) black spot (chief complaint) Dry eye syndrome of bilateral lacrimal glandsBlepharitis of eyelidOther vitreous opacities, bilateral Oct-0 6 Carl Ortiz. [address], [id number], . tel:[phone] Referring Provider: Angel Mckeon, [address], [id number] . tel:[phone] [facility], [address] [place] [address], [id number] , tel:[phone] [facility] Post Op (chief complaint) PseudophakiaVitreous floatersDry eyes 5 Carl Ortiz. [address], [address] [place] [address], . tel:[phone] Referring Provider: Angel Mckeon, [address] [place] [address], [id number] . tel:[phone] [facility] [place], [address] [place] [address], [id number] , tel:[phone] [facility] No Information 5 [facility]. [address] [place] [address], [id number], . tel:[phone] Referring Provider: Angel Mckeon, [address] [place] [address], [id number] . tel:[phone] [facility], [address] [place] [address], [id number] , tel:[phone] [facility] No Information 5 Carl Ortiz. [address] [place] [address], [id number], . tel:[phone] Referring Provider: Angel Mckeon, [address] [place] [address], [id number] . tel:[phone] Offic/outpt E&m Estab Low-mod [facility], [address] [place] [address], [id number] , tel:[phone] [facility] Post Op (chief complaint) Floaters (chief complaint) Blurry vision (chief complaint) Post Capsular HazeVitreous floaters 5 Carl Ortiz. [address], [address] [place] [address], . tel:[phone] Referring Provider: Angel Mckeon, [address], [address] . tel:[phone] [facility] [place], [address] [place] [address], [address] [place] [address] , tel:[phone] [facility] No Information 5 [facility]. [address] [place] [address], [address] [place] [address], . tel:[phone] Referring Provider: Angel Mckeon, [address] [place] [address], [id number] . tel:[phone] [facility], [address] [place] [address], [address] [place] [address] , tel:[phone] [facility] No Information 5 Carl Ortiz. [address] [place] [address], [address] [place] [address], . tel:[phone] Referring Provider: Angel Mckeon, [address] [place] [address], [id number] . tel:[phone] Offic/outpt E&m New Mod-hi 45 [facility], [address] [place] [address], [address] [place] [address] , tel:[phone] [facility] decreased vision (chief complaint) Post Capsular HazeVitreous floatersDry eyes Apr-0 5 Carl Ortiz. [address], [address] [place] [address], . tel:[phone] Referring Provider: Angel Mckeon, [address] [place] [address], [id number] . tel:[phone] Family History Family Member Type Diagnosis Age At Onset Brother Problem (finding) Mother Problem (finding) Father Problem (finding) Sister Problem (finding) Alive and well Payers Payer name Insurance type Covered libertarian ID Authortea ngo(s) Medicare MB [id number] [facility] [id number] Social History Type Description Quantity Date Captured [...] for all daily tasks. Patient uses [employer]. Dry eyes The 75 year old female presents for evaluation of Dry eyes in the right eye and left eye. It started about 6 month(s) ago. It occurs all the time. The onset was sudden. The condition is mild. Has to squeeze eyes together to get them tearing to help clear the dry eye feeling. Does not bother VA. black spot The patient pres ents with history of black spot in the right eye and left eye. Once in a great while I will see a black spot but it doesn't stay . Post Op 16 day post op f or Yag cap laser, right eye. Patient states that vision has improved since the laser, says that it's nice to see again and wear sunglasses . Patient says vision is excellent. Post Op The 73 year old female presents for evaluation of Post Op (YAG) in the left eye. Pt states VA much better since YAG Laser. Floaters The patient pres ents for evaluation of Floaters in the left eye. Aware of floaters since YAG. Blurry vision The patient pres ents for evaluation of Blurry vision in the right eye. Aware of rings around headlights x 1week ago. decreased vision The 73 year old female [...] Henry established patient long exam. cpt today 40792 Related to Blepharitis of upper and lower eyelids of both eyes, unspecified type Impression/Plan Related to Dry e ye syndrome of bilateral lacrimal glands Impression/Plan Related to Bleph aritis of upper and lower eyelids of both eyes, unspecified type Impression/Plan Related to Other vitreous opacities, right eye Return in [address] Angel Henry [place] [address] today. Related to Other vitreous opacities, bilateral [...] Angel Henry established patient [place]. cpt 11666 today. Related to Other vitreous opacities, bilateral - Suggest use artifi cial tears once or twice a day for comfort. Related to Dry eyes - Return in 1 year w tiffanie Henry established patient long exam. CPT code today 86636 Related to Pseudophakia - Stable YAG post [...] see Patient Counselor today. CPT code today 98695 Related to Post Capsular Haze - Suggest [...]
== END 2024-08-21 14:33 | disposition home or self-care (01) ==
LOC: HO.US 14:32
PROVIDERS: PCP Nurse Practitioner; Visit Provider Student in an Organized Health Care Education/Training Program
DX: E05.90 Thyrotoxicosis, unspecified without thyrotoxic crisis or storm (principal); E04.1 Nontoxic single thyroid nodule
CPT/HCPCS: 76536

== ENCOUNTER → 2024-08-21 14:35 | Outpatient (BNV) | payer MEDICARE, OTHER, SELFPAY | PROVIDERS: PCP Nurse Practitioner; Visit Provider Radiology Diagnostic Radiology | DX: E05.90 Thyrotoxicosis, unspecified without thyrotoxic crisis or storm (principal) | CPT/HCPCS: 76536 ==

== ENCOUNTER 2024-09-03 13:10 | Outpatient (AMB) | payer MEDICARE, OTHER, SELFPAY ==
--- NOTE | 2024-09-03 13:16 | A.OFFVIS_ITS ---
Vital Signs 3 09/03/24 13:17 Height 5 ft 6 in Weight 137 lb 9.095 oz BMI 22.2 BP 138/68 Blood Pressure Location Rt brachial Position Sitting Pulse 80 Pulse Source Pulse Oximeter Pulse Oximetry (%) 94 Oxygen Delivery Method Room Air Intake Visit Reasons: hyperthyroidism Intake Note: Patient present today for hyperthyroidism office visit. 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 Here today with grandaughter. HPI Labs done in May 2024 showed TSH was mildly low at 0.212, with normal free T4 of 1.4. Patient currently denies heat or cold intolerance, diarrhea or constipation, hair loss, palpitation, weight changes, mood changes, low energy, changes in appearance of eyes or vision changes, increased diaphoresis or dry skin. ? Does report some increased anxiety. Some intermittent chronic tremors. Patient denies any difficulty swallowing, pain on swallowing or voice changes or difficulty breathing. Patient denies any history of childhood neck radiation. Denies having ever used lithium, amiodarone or biotin supplements. Patient denies any family history of thyroid cancer. Granddaughter has hypothyroidism. no CT scan recently no preceding viral illness no CAD no fractures but no bone recent BMD , patient denies osteoporosis Interval history 07/19/2024: TSH 0.07, free T4 1.26, total T3 159, TSI antibodies undetectable, TPO and TSH receptor antibodies also undetectable 08/21/2024: Ultrasound of the thyroid, I reviewed the images myself which showed a heterogenous gland with multiple spongiform low risk appearing nodules, but a dominant with a right midpole 3.2 cm mixed cystic solid, isoechoic nodule with punctate echogenic foci, TR 4 category, this meets criteria for FNA. Physical exam General: sitting comfortably in no acute distress HEENT: normocephalic/atraumatic, moist oral mucosa Neck: supple, palpable 1 cm right-sided thyroid nodule, palpable 1 cm left-sided level 3 lymph node Cardiac: normal heart sounds Pulm: normal breath sounds B/L, no added breath sounds Abd: not distended, no tenderness Laboratory Tests 07/19/24 15:21 TSH 0.07 L Free T4 1.26 Total T3 159 Thyroid Stim Immunoglob <89 Thyroid Peroxidase Ab <1 TSH Receptor Ab <1.00 EXAMINATION: US THYROID 08/21/24 HISTORY: E05.90 - Thyrotoxicosis, unspecified without thyrotoxic crisis or storm TECHNIQUE: Real-time grayscale ultrasound imaging was performed and images were reviewed. COMPARISON: There are no prior studies available for comparison. FINDINGS: SIZE: The right thyroid lobe measures 4.9 x 2.6 x 2.8 cm. The left thyroid lobe measures 2.6 x 0.9 x 0.7 cm. The isthmus measures 2 mm. FLOW: Flow to the gland is normal. ECHOGENICITY: The echotexture of the gland is heterogeneous. NODULES: There is a dominant nodule in the midportion of the right thyroid lobe as described below: Nodule #: 1 Location: Midportion of the right thyroid lobe measuring 3.2 x 2.1 x 2.5 cm. Shape: Wider than tall (0 points) Margins: Smooth (0 points) Echotexture: Isoechoic (1 point) Composition: Mixed (1 point) Calcifications: Punctate calcifications (3 points) Total points: 6 TIRADS: TR4: Moderately suspicious. US/US thyroid IMPRESSION: Dominant 3.2 x 2.1 x 2.5 cm moderately suspicious nodule in the right thyroid lobe. According to ACR TI-RADS guidelines below, ultrasound-guided fine-needle aspiration is recommended. [facility] Medical History (Updated 07/19/24 @ 14:47 by Yisel Corcoran MD) Thyroid nodule Subclinical hyperthyroidism Surgical History History of bladder surgery Social History Alcohol intake: current Alcohol intake frequency: does not drink Patient Tobacco Use Status: Former Tobacco user Physical Exam Vital Signs: Last Vital Signs Pulse 80 09/03/24 13:17 BP 138/68 09/03/24 13:17 Pulse Ox 94 09/03/24 13:17 Oxygen Delivery Method Room Air 09/03/24 13:17 BMI result Body Mass Index 22.2 Assessment & Plan Assessment & Plan (1) Subclinical hyperthyroidism: Code(s): E05.90 - Thyrotoxicosis, unspecified without thyrotoxic crisis or storm Category: Medical Plan: 83-year-old female here today for follow up of subclinical hyperthyroidism. Labs done in May 2024 showed TSH was mildly low at 0.212, with normal free T4 of 1.4. She has never had prior history of thyroid dysfunction or thyroid hormone medication. She is not symptomatic. No history of heart disease, no known history of osteoporosis or any history of fragility fracture. However she is greater than 65 years, so we could possibly consider treatment. She denies any preceding illness, no sore throat to suggest thyroiditis. No recent contrast exposure. No biotin use. 07/19/2024: TSH 0.07, free T4 1.26, total T3 159, TSI antibodies undetectable, TPO and TSH receptor antibodies also undetectable 08/21/2024: Ultrasound of the thyroid, I reviewed the images myself which showed a heterogenous gland with multiple spongiform low risk appearing nodules, but a dominant with a right midpole 3.2 cm mixed cystic solid, isoechoic nodule with punctate echogenic foci, TR 4 category, this meets criteria for FNA. This could possibly be a toxic adenoma versus toxic multinodular goiter, at this time we discussed in detail options of doing a thyroid uptake and scan especially given TSH is less than 0.1 with her age being greater than 65, could possibly be at risk of arrhythmias. However at this time patient reiterated that she feels well as she would not like to pursue any further investigations. I did discuss with her conservative management with keeping an eye on blood work every 6 months to a year. However at this time she also expressed that she does not want any repeat blood work of follow up. We discussed that if she changes her mind she can call the office for follow up. I explained to her symptoms of worsening hyperthyroidism and that she can arrange a follow up if those happen. Plan: -if patient changes her mind, she can call the office for a follow up with a repeat blood work in 6 months to 1 year. PCP can also check repeat TSH and free T4 every 6 months to a year to ensure that it is not worsening if patient is willing. (2) Thyroid nodule: Code(s): E04.1 - Nontoxic single thyroid nodule Category: Medical Plan: Patient with no family history of thyroid cancer, with no personal history of head or neck radiation was found to have a dominant right-sided nodule on thyroid ultrasound. 08/21/2024: Ultrasound of the thyroid, I reviewed the images myself which showed a heterogenous gland with multiple spongiform low risk appearing nodules, but a dominant with a right midpole 3.2 cm mixed cystic solid, isoechoic nodule with punctate echogenic foci, TR 4 category, this meets criteria for FNA. Given this could be a toxic nodule given subclinical hyperthyroidism we did discuss about getting an uptake and scan but as mentioned above at this time patient would not like to pursue further treatment/investigations. I explained that it is common to have thyroid nodules. About 95% of the time these nodules are benign. However if the nodule is > 1 cm in size or suspicious on ultrasound then a fine need aspiration biopsy is recommended. We discussed that a FNAB involves 4-5 passes with a small gauge needle and material obtained is sent off for cytology.If the cytopathology is benign then the nodule will be followed annually with repeat ultrasounds. However if it is suspicious or malignant, we will need to discuss further management. Indeterminate cytology can be further investigated with repeat FNA, genetic testing or empiric lobectomy. Malignant cytology is managed with either lobectomy or total thyroidectomy. We discussed briefly that thyroid cancer is, in most patients, an indolent disease that does not affect mortality. At this time given the nodule is suspicious in appearance, I recommended FNA, however given her age patient at this time express that she is not interested in further follow up of this. She understands the risk of 5-10% risk of cancer. Which can potentially spread and be fatal. However as discussed in most cases thyroid cancer is an indolent disease. Patient will call the office and let us know if she changes her mind. She does not have any compressive symptoms. I did discuss with her potential compressive symptoms. Plan I spent 30 minutes in reviewing the record, seeing the patient and documenting in the medical record. Patient Instructions: We discussed that your thyroid blood work shows your thyroid is still mildly/subclinical overactive, we discussed about getting a scan to further evaluate this however at this time you expressed that since you are not having any symptoms, and at this time would not want to pursue further treatment options were which could include surgery versus radioactive iodine ablation or low dose medication, so we are not ordering the scan. I discussed the other option of keeping a close eye on your blood work with maybe repeat labs in 6 months to a year, however at this time you also expressed that you would not like to do repeat blood work. Please let us know that if you change your mind and would like to follow up with us you can call the office to make an appointment. We also discussed that you have a right-sided thyroid nodule which meets criteria for biopsy to rule out malignancy. I explained that it is common to have thyroid nodules. About 95% of the time these nodules are benign. However if the nodule is > 1 cm in size or suspicious on ultrasound then a fine need aspiration biopsy is recommended. We discussed that a FNAB involves 4-5 passes with a small gauge needle and material obtained is sent off for cytology.If the cytopathology is benign then the nodule will be followed annually with repeat ultrasounds. However if it is suspicious or malignant, we will need to discuss further management. Indeterminate cytology can be further investigated with repeat FNA, genetic testing or empiric lobectomy. Malignant cytology is managed with either lobectomy or total thyroidectomy. We discussed briefly that thyroid cancer is, in most patients, an indolent disease that does not affect mortality. At this time you decided that you would also not like to pursue a biopsy. Again I reiterated if you change your mind you can always call the office and let us know. Coding Level of Care Code Est Pt Level 4 (32496) Diagnoses Subclinical hyperthyroidism E05.90 Thyroid nodule E04.1 Time Spent (min) 30
[2024-09-03 13:17] VITALS: BP 138/68; PULSE 80; O2SAT 94; BMI 22.2
--- OUTSIDE RECORDS SUMMARY | 2024-09-03 14:37 | XMS_ITS | Patient Health Record ---
Author Organization [facility] Address [address] [place] [address] [address] [place] [address] Care Team Providers Care Lead Quality Technician Name Role Phone Rachel LEY, Artis Primary Care Provider Unav ailable Jose Enrqiuez Unavailable [phone] Allergies Allergen (clinical drug ingredient) Drug/Non Drug Allergy documented on EMR Reaction Allergy Type Onset Date Status Penicillin G Benzathine Unknown Drug Allergy Active Reason For Referral No Information Medications Medication SIG (Take, Route, Frequency, Duration) Notes Start Date End Date Status Amitriptyline HCl 50 MG Oral for 90 Active hydroCHLOROthiazide 25 MG Oral for 90 Active Lovastatin 20 MG Oral for 90 A ctive Advair HFA 115-21 MCG/ACT Inhalation for 90 Active Temazepam 15 MG Oral for 30 Ac tive Trelegy Ellipta 100-62.5-25 MCG/INH INHALE 1 PUFF BY MOUTH ONCE DAILY Inhalation for 30 Active Immunizations Vaccine Route Administration Date Status Comme nts Pneumococcal (Given in the past) Unknown 01/22/2017 Adm inistered Pneumococcal (Given in the past) Unknown 11/25/2017 Adm inistered Social History Alcohol Screen Question Answer Notes Did you have a drink containing alcohol in the p ast year? No Points 0 Interpretation Negative Problems Problem Type SNOMED Code ICD Code Onset Dates Problem Status W/U Status Risk Notes Problem Incontinence (76221541) Incontinence (R32) Active confirmed Problem Essential hypertension (25791723) Essential hypertension (I10) Active confirmed Problem Atrophy of vagina (734867147) Vaginal atrophy (N95.2) Active confirmed Problem Retention of urine (602374050) Urine retention (R33.9) Active confirmed She has urine retention (250 cc) which limits her bladder capacity. Total volume was 450 cc. However urodynamics demonstrates no bladder function. Cystoscopy does not suggest an obstructing sling either. She is leaking anyway. We discussed placing an obstructive sling for the remaining SOLITARIO. She can not void due to her lack of bladder function and has been doing self -cath for the last year. 02/2019 I placed a tight sling. She has been very happy over the last year. Problem Fecal impaction in rectum (35750663) Fecal impaction in rectum (K56.41) Active confirmed may be part of her issues Plan Of Treatment No Information Insurance Providers Payer Name Payer Address Payer Phone Subscriber Number Group Number Insured Name Patient Relationship to Insured Coverage Start Date Coverage End Date MEDICARE PART B [facility] [address] [address] [place], [place] [id number] [phone] [id number] MAX[employer]YNN Self - patient is the insured 7 [employer] [address] [place] [address] [id number] MAXWELL FLYNN Self - patient is the insured 8 Medical (General) History Medical History History ICD Code Hypertension hyperlipidemia COPD depression Surgical History Surgery Date(Month/Year) tight [place] sling for retention 03/01/20 19 ?sling and anterior colporrhaphy 09/29/19 17
== END 2024-09-03 13:52 | disposition home or self-care (01) ==
LOC: HO.ENCR 13:11
PROVIDERS: PCP Nurse Practitioner; Visit Provider Student in an Organized Health Care Education/Training Program
DX: E05.90 Thyrotoxicosis, unspecified without thyrotoxic crisis or storm (principal); E04.1 Nontoxic single thyroid nodule
CPT/HCPCS: 99214

== ENCOUNTER → 2024-09-03 13:10 | Outpatient (BNVA) | payer MEDICARE, OTHER, SELFPAY | PROVIDERS: PCP Nurse Practitioner; Visit Provider Student in an Organized Health Care Education/Training Program | DX: E05.90 Thyrotoxicosis, unspecified without thyrotoxic crisis or storm (principal); E04.1 Nontoxic single thyroid nodule | CPT/HCPCS: 99212 ==